=== PATIENT | female | born 1965 | race Caucasian/White ===

== ENCOUNTER 2016-10-09 13:15 | Emergency (ER) | payer BC | END 2016-10-09 15:00 | disposition home or self-care (01) | LOC: ER1 13:15 | DX: L60.0 Ingrowing nail (principal); E11.9 Type 2 diabetes mellitus without complications; I10 Essential (primary) hypertension; Z79.84 Long term (current) use of oral hypoglycemic drugs; Z79.899 Other long term (current) drug therapy | CPT/HCPCS: 99283 ==

== ENCOUNTER → 2020-06-04 | Outpatient (CLI) | payer OTHER, BC ==
[~2020-06-04] MED LIST: NORCO 5-325 TA1 EACH PO
== END ==
LOC: RAD 11:06
DX: Z02.1 Encounter for pre-employment examination (principal)

== ENCOUNTER → 2021-02-28 | Outpatient (CLI) | payer BC ==
[2021-02-28 11:30] LABS: WHITE BLOOD COUNT 7.4 K/UL (4.5-11.0)
[2021-02-28 11:58] LABS: BUN/CREATININE RATIO 15 (0-10)
[2021-03-01 09:10] LABS: VITAMIN D, 25-HYDROXY 26.8 ng/mL (30.0-100.0)
== END ==
LOC: LAB 11:09
PROVIDERS: Nurse Practitioner Family
DX: E11.9 Type 2 diabetes mellitus without complications (principal); E78.5 Hyperlipidemia, unspecified; I10 Essential (primary) hypertension; E55.9 Vitamin D deficiency, unspecified; R10.13 Epigastric pain
CPT/HCPCS: 36415; 80053; 80061; 82570; 82607; 84156; 84439; 84443; 85025

== ENCOUNTER → 2021-03-25 | Outpatient (CLI) | payer BC | LOC: MAMO 14:41 | DX: Z12.31 Encounter for screening mammogram for malignant neoplasm of breast (principal) | CPT/HCPCS: 77063; 77067 ==

== ENCOUNTER → 2021-04-10 | Day surgery (SDC) | payer BC ==
[~2021-04-10] MED LIST changes: +AMLODIPINE BESYL5 MG PO; +CLARITIN10 M2 PO; +LANTUS SOL100 UNIT/1 SQ; +LOSARTAN POTAS100 MG PO; +OMEPRAZOLE20 MG PO; +PROBIOTIC1 EAC3 PO; +TRULICITY1.5 MG/0.5 SQ; +VITAMIN D3125 MCG PO
== END | disposition home or self-care (01) ==
LOC: OR 09:32
DX: Z12.11 Encounter for screening for malignant neoplasm of colon (principal); R10.13 Epigastric pain; I10 Essential (primary) hypertension; E78.5 Hyperlipidemia, unspecified; E11.9 Type 2 diabetes mellitus without complications; K21.9 Gastro-esophageal reflux disease without esophagitis; E66.01 Morbid (severe) obesity due to excess calories; Z68.37 Body mass index [BMI] 37.0-37.9, adult; Z87.891 Personal history of nicotine dependence; Z79.4 Long term (current) use of insulin; Z79.899 Other long term (current) drug therapy
CPT/HCPCS: 43235; G0121; 82962; J2704; J7030

== ENCOUNTER → 2021-09-24 | Outpatient (CLI) | payer BC ==
[2021-09-24 11:56] LABS: HEMOGLOBIN 13.4 gm/dl (12.3-15.3); RED BLOOD COUNT 4.79 M/UL (4.00-5.10); WHITE BLOOD COUNT 5.5 K/UL (4.5-11.0)
[2021-09-24 12:06] LABS: BUN/CREATININE RATIO 27 (0-10)
== END ==
LOC: LAB 11:11
PROVIDERS: Nurse Practitioner Family
DX: E78.5 Hyperlipidemia, unspecified (principal); I10 Essential (primary) hypertension; E11.9 Type 2 diabetes mellitus without complications; E55.9 Vitamin D deficiency, unspecified
CPT/HCPCS: 36415; 80053; 80061; 82570; 82607; 84156; 84439; 84443; 85025